=== PATIENT | male | born 1995 | race Caucasian/White ===

== ENCOUNTER 2018-08-22 13:04 | Emergency (ER) | payer BC ==
[~2018-08-22] VITALS: Ht 182.9 cm; Wt 81.7 kg
[2018-08-22 13:51] LABS: ABSOLUTE NEUTROPHILS 1.9 thou/uL (1.4-8.2); BASOPHILS 0.7 % (0.0-2.0); EOSINOPHILS 1.9 % (0.0-3.0); HEMATOCRIT 46.4 % (42.0-52.0); HEMOGLOBIN 15.8 gm/dL (14.0-18.0); LYMPHOCYTES 46.2 % (24.0-44.0); MCH 28.9 pg (26.0-34.0); MCHC 34.1 g/dL (28.0-37.0); MCV 84.8 fL (80.0-100.0); MONOCYTES 7.8 % (1.0-8.0); PLATELET COUNT 199 thou/uL (150-400); POLYS 43.4 % (36.0-66.0); RBC 5.47 mil/uL (4.50-6.00); RDW 13.2 % (10.5-14.5); WBC 4.4 thou/uL (4.0-11.0)
[2018-08-22 13:55] LABS: ANION GAP 6 mmol/L (7-16); BUN 15 mg/dL (7-18); CALCIUM 8.9 mg/dL (8.5-10.1); CHLORIDE 104 mmol/L (98-107); CO2 29 mmol/L (21-32); GLUCOSE 96 mg/dL (74-106); POTASSIUM 3.8 mmol/L (3.5-5.1); SODIUM 139 mmol/L (136-145)
[2018-08-22 14:05] LABS: ALBUMIN 4.2 g/dL (3.4-5.0); SGOT 21 U/L (15-37); SGPT 22 U/L (30-65); TOTAL BILIRUBIN 0.5 mg/dL (<0.1-1.0); TOTAL PROTEIN 7.4 g/dL (6.4-8.2); TROPONIN-I <0.06 ng/mL (<0.06)
--- NOTE | 2018-08-22 15:04 | EKG ---
[facility] [address] [place] [address] ELECTROCARDIOGRAM REPORT Name: RONNIE AG Room #: REG Ino#: [id number] ������������������ Admission: 08/22/18 ������������������ Attend Phys: Discharge: ������������������ Date of : [birth year] Report #: [id number] ����������������������������������������������������������������� [id number] THIS REPORT FOR: //name// [facility] ED Test Date: 2018-08-22 Test Time: 13:11:08 Pat Name: RONNIE GA Department: Room: Gender: Roving Carrier: DENY : 1995 Requested By: Abigail Ornelas Order Number: [id number] MD: Ortiz Hickman Measurements Intervals [place] Rate: 90 P: 63 [place]: 152 QRS: 61 QRSD: 99 T: 47 QT: 362 QTc: 443 Interpretive Statements Sinus rhythm Probable left atrial enlargement Borderline T wave abnormalities Baseline wander in lead(s) V1 No previous ECG available for comparison Electronically Signed On 08-22-2018 15:03:52 CDT by Ortiz Hickman [email or web address] ��������������������������������������������� <ELECTRONICALLY SIGNED> ���������������������������������������� By: Ortiz Hickman MD ��������������������������������������������� 08/22/18 1503 1311 1311 Ortiz Hickman MD /EPI
[2018-08-22 15:22] LABS: AMP/METHAMP Negative (Negative); BARBITURATES Negative (Negative); BENZODIAZEPINES Negative (Negative); COCAINE Negative (Negative); METHADONE Negative (Negative); OPIATES Negative (Negative); PCP Negative (Negative)
[2018-08-22 15:54] LABS: URINE BILIRUBIN NEGATIVE (Negative); URINE BLOOD NEGATIVE (Negative); URINE CLARITY CLEAR; URINE COLOR YELLOW; URINE GLUCOSE-RANDOM* NEGATIVE (Negative); URINE KETONES NEGATIVE (Negative); URINE LEUKOCYTES-REFLEX NEGATIVE (Negative); URINE NITRITE-REFLEX NEGATIVE (Negative); URINE PROTEIN (DIPSTICK) NEGATIVE (Negative); URINE SPECIFIC GRAVITY <= 1.005 (1.005-1.035); URINE UROBILINOGEN 0.2 E.U./dl (0.2-1.0)
[2018-08-22 16:15] VITALS: BP 132/79
== END 2018-08-22 16:15 | disposition home or self-care (01) ==
LOC: ER 13:04
PROVIDERS: Physician Assistant
DX: R07.89 Other chest pain (principal); R06.4 Hyperventilation; Z83.42 Family history of familial hypercholesterolemia; Z82.49 Family history of ischemic heart disease and other diseases of the circulatory system; Z81.2 Family history of tobacco abuse and dependence